=== PATIENT | female | born 1930 | race Caucasian/White ===

== ENCOUNTER 2017-07-03 13:26 | Inpatient (IN) ==
--- NOTE | 2017-07-03 18:25 | Internal Med History&Physical ---
Date of Encounter: 07/03/17 Time of Encounter: 17:00 Internal Medicine - H&P: HPI Chief complaint: Fall Admitted From: Home History of present illness: Patient is an 87-year-old female with past medical history significant for dementia, hyperlipidemia and mood disorder who presents to the ER on 07/03/17 status post fall. Patient has a history of dementia and family who is present at bedside, does not know much about patients past medical history as she recently moved from [place] approximately 2 months ago. Family does report however that they heard patient fall early this morning and when they went to the bathroom, they found patient face down on the floor. Patient was brought into the ER for further evaluation. In the ER, patient was found to be in atrial fibrillation with RVR. CT of the head showed no acute findings. Patient will be admitted to medical surgical floor for new onset of age of for ablation for RVR. Past Med Surg Social Fam HX - Past Medical History Medical history: cancer, dementia, hyperlipidemia Psychiatric history: no psych history - Past Surgical History Surgical History: non-contributory - Social History Smoking Status: Never smoker Alcohol use: none - Family History Son Living Status: Still Living Hx Family Cardiac Disorders: Yes Hx Family Respiratory Disorders: No Hx Family Cancer: Yes Hx Family GI Disorders: No Hx Family Genitourinary Disorders: No Hx Family Endocrine Disorder: No Hx Family Musculoskeletal Disorders: No Hx Family Neuromuscular Disorders: No Hx Family Neurologic Disorders: Yes Hx Family Medical Disorders: Yes Internal Medicine - H&P: Meds Citalopram [CeleXA] 20 mg PO DAILY 07/03/17 [History] Cranberry Fruit [Cranberry] 400 mg PO DAILY 07/03/17 [History] Donepezil [Aricept] 10 mg PO HS 07/03/17 [History] Lovastatin [Altoprev] 20 mg PO DAILY 07/03/17 [History] Mirabegron [Myrbetriq] 25 mg PO DAILY 07/03/17 [History] Nitrofurantoin (BID) [Macrobid] 100 mg PO BID 07/03/17 [History] 3 Allergy/AdvReac Type Severity Reaction Status Date / Time No Known Allergies Allergy Verified 07/03/17 12:05 ROS unobtainable: due to mental status All Systems PM: A 10-system review of systems was performed and is negative for pertinent findings except as documented above in the HPI. - Constitutional Vitals: Temp Pulse Resp BP Pulse Ox 98.1 F 125 18 134/89 93 07/03/17 15:06 07/03/17 15:06 07/03/17 15:06 07/03/17 15:06 07/03/17 15:06 General appearance: Present: A&O X 1 - Eye Eye exam: Present: normal appearance - ENT ENT exam: Present: mucous membranes moist - Respiratory Respiratory exam: Present: CTAB. Absent: accessory muscle use, rales, rhonchi, wheezes - Cardiovascular Cardiovascular exam: Present: RRR, +S1, +S2. Absent: diastolic murmur, gallop, rubs, systolic murmur - GI/Abdominal GI/Abdominal exam: Present: normal bowel sounds, soft, no peritoneal signs. Absent: distended, tenderness - Extremities Exam Extremities exam: Present: pedal edema - Neurological Exam Neurological exam: Present: altered - Psychiatric Psychiatric exam: Present: normal mood - Skin Skin exam: Present: normal color - Assessment and plan (1) New onset a-fib Current Visit: No Status: Acute Assessment and plan: Patient in the ER found to have new onset A. fib with RVR Will continue Cardizem drip for rate control and start patient on heparin drip for anticoagulation Cardiology consulted and appreciate recommendations. (2) Elevated troponin Current Visit: No Status: Acute Assessment and plan: Patient found to have elevated troponin of 0.34 Patient is asymptomatic and denies any chest pain; unclear if secondary to demand ischemia due to A. fib with RVR above Will trend troponins serially and monitor on telemetry Patient on heparin drip as above and cardiology consulted (3) Falls Current Visit: Yes Status: Acute Assessment and plan: Family reports that patient has had 2 falls since she has lived with them in the last 2 months Will consult physical therapy for evaluation of home safety Qualifiers: Encounter type: initial encounter Qualified Code(s): W19.XXXA - Unspecified fall, initial encounter (4) Dementia Current Visit: Yes Status: Acute Assessment and plan: Will continue home medications Qualifiers: Alzheimer's disease onset: unspecified onset Qualified Code(s): G30.9 - Alzheimer's disease, unspecified; F02.81 - Dementia in other diseases classified elsewhere with behavioral disturbance (5) DVT prophylaxis Current Visit: Yes Status: Acute Assessment and plan: Patient on heparin drip as above - Time Spent With Patient Total time spent is greater than 50% in coordination of care (as documented) at patient's floor/unit and/or counseling patient:
[2017-07-03] MEDS ORDERED: Naloxone 0.4 MG/ML INJ IVP PRN (18:35)
[2017-07-03] MEDS ORDERED: *HR* Heparin 5,000 UNIT/ML VIAL IVP ONE (18:38)
[2017-07-03] MEDS ORDERED: *HR* Heparin 5,000 UNIT/ML VIAL IVP PRN ×2 (18:38)
[2017-07-03 19:12] LABS: Hematocrit 35.5 % (35.3-44.9); Mean Corpuscular HGB Conc 33.8 g/dL (31.6-35.5); Mean Corpuscular Hemoglobin 31.9 pg (28.0-33.3); Mean Corpuscular Volume 94.4 fL (83.0-100.0); Mean Platelet Volume 9.3 fL (9.4-12.4); Platelet Count 203 K/mcL (140-400); Red Blood Count 3.76 M/mcL (3.82-4.97); Red Cell Distribution Width 14.6 % (11.5-14.5)
[2017-07-03 19:20] LABS: INR 1.2; Prothrombin Time 12.5 Seconds (9.4-12.1)
[2017-07-03 19:22] LABS: Activated Partial Thrombo Time 30.5 Seconds (26.0-36.0)
[2017-07-03] MEDS: Heparin 25,000 UNIT/500 ML D5W 25,000 UNIT/500 ML BAG IVC SCH (19:53)
[2017-07-04 02:38] LABS: BUN/Creatinine Ratio 29 (6-26); Blood Urea Nitrogen 21 mg/dL (8-23); Calcium 8.4 mg/dL (8.6-10.3); Carbon Dioxide 24 mEq/L (23-29); Chloride 110 mEq/L (98-107); Glucose 108 mg/dL (70-105); Osmolality,Calculated 294 (280-300); Potassium 3.5 mEq/L (3.5-5.1); Sodium 140 mEq/L (136-145); eGFR For African Americans > 60 (> 60); eGFR For Non-African Americans > 60 (> 60)
[2017-07-04 02:47] LABS: Basophils % 0.3 %; Eosinophils # 0.3 K/mcL (0.0-0.6); Eosinophils % 3.7 %; Hematocrit 32.5 % (35.3-44.9); Immature Granulocytes % 0.3 % (0-4); Lymphocytes # 2.1 K/mcL (0.6-4.6); Lymphocytes % 31.4 %; Mean Corpuscular HGB Conc 33.8 g/dL (31.6-35.5); Mean Corpuscular Hemoglobin 31.9 pg (28.0-33.3); Mean Corpuscular Volume 94.2 fL (83.0-100.0); Mean Platelet Volume 9.6 fL (9.4-12.4); Monocytes # 0.4 K/mcL (0.0-1.3); Monocytes % 5.5 %; Neutrophils # 3.9 K/mcL (1.6-8.9); Platelet Count 178 K/mcL (140-400); Red Blood Count 3.45 M/mcL (3.82-4.97); Red Cell Distribution Width 14.6 % (11.5-14.5); Segmented Neutrophils % 58.8 %
[2017-07-04 02:49] LABS: Activated Partial Thrombo Time 162.3 Seconds (26.0-36.0)
[2017-07-04 02:55] LABS: Heparin anti-factor XA UFH 0.64 IU/mL (0.30-0.70)
--- NOTE | 2017-07-04 09:32 | Internal Med Progress Note ---
Date of Encounter: 07/04/17 Time of Encounter: 09:30 - Assessment and plan (1) New onset a-fib Current Visit: No Status: Inactive Assessment and plan: Patient in the ER found to have new onset A. fib with RVR Will continue Cardizem drip for rate control and start patient on heparin drip for anticoagulation Cardiology consulted and appreciate recommendations. (2) Elevated troponin Current Visit: No Status: Inactive Assessment and plan: Patient found to have elevated troponin of 0.34. Troponins trended up to 1.32 Patient is asymptomatic and denies any chest pain; unclear if secondary to demand ischemia due to A. fib with RVR above Will trend troponins serially and monitor on telemetry Patient on heparin drip as above and cardiology consulted (3) Dementia Current Visit: Yes Status: Acute Assessment and plan: Will continue home medications Qualifiers: Alzheimer's disease onset: unspecified onset Qualified Code(s): G30.9 - Alzheimer's disease, unspecified; F02.81 - Dementia in other diseases classified elsewhere with behavioral disturbance (4) DVT prophylaxis Current Visit: Yes Status: Acute Assessment and plan: Patient on heparin drip as above (5) Falls Current Visit: Yes Status: Acute Assessment and plan: Family reports that patient has had 2 falls since she has lived with them in the last 2 months Will consult physical therapy for evaluation of home safety Qualifiers: Encounter type: initial encounter Qualified Code(s): W19.XXXA - Unspecified fall, initial encounter - Time Spent With Patient Total time spent is greater than 50% in coordination of care (as documented) at patient's floor/unit and/or counseling patient: - Subjective Interval history: No acute events overnight - Constitutional Vitals: Temp Pulse Resp BP Pulse Ox 98.3 F 67 18 135/72 95 07/04/17 08:06 07/04/17 08:06 07/04/17 08:06 07/04/17 08:06 07/04/17 08:06 General appearance: Present: A&O X 1 - Head Head exam: Present: atraumatic, normocephalic - Eye Eye exam: Present: PERRL, conjuntiva pink, sclera anicteric Pupils: Present: PERRL - Neck Neck exam general surgery: Present: supple, trachea midline. Absent: lymphadenopathy - Respiratory Respiratory exam: Present: CTAB. Absent: accessory muscle use, rales, rhonchi, wheezes - Cardiovascular Cardiovascular exam: Present: RRR, +S1, +S2. Absent: diastolic murmur, gallop, rubs, systolic murmur - GI/Abdominal GI/Abdominal exam: Present: normal bowel sounds, soft, no peritoneal signs. Absent: distended, tenderness - Extremities Exam Extremities exam: Present: warm, radial pulses palpable and symmetrical. Absent : calf tenderness, cyanotic, pedal edema - Neurological Exam Neurological exam: Present: CN II-XII intact, oriented X3, no focal deficits. Absent: pronater drift, facial droop, speech deficit - Skin Skin exam: Present: dry, intact Internal Medicine: Result - Labs CBC & Chem 7: 07/04/17 01:47 07/04/17 01:47 Labs: Short CBC 07/03/17 07/04/17 Range/Units 18:57 01:47 WBC 9.0 6.7 (4.3-11.1) K/mcL Hgb 12.0 11.0 L (11.5-15.4) g/dL Hct 35.5 32.5 L (35.3-44.9) % Plt Count 203 178 (140-400) K/mcL Neutrophils # 3.9 (1.6-8.9) K/mcL BMP 07/04/17 01:47 Sodium 140 Potassium 3.5 Chloride 110 H Carbon Dioxide 24 BUN 21 Creatinine 0.73 Glucose 108 H Calcium 8.4 L Cardiac Enzymes 07/03/17 07/04/17 07/04/17 Range/Units 18:57 01:47 06:30 Troponin I 1.32 H* 0.98 H* 0.89 H* (< 0.04) ng/mL - ABG Interpretation ABG results: PT/INR, D-dimer PT 12.5 Seconds (9.4-12.1) H 07/03/17 18:57 Consult Discharge Plan - Plan Referrals: NONE,PCP [Primary Care Provider] -
--- NOTE | 2017-07-04 10:14 | Cardiology Consult Note ---
Date of Encounter: 07/04/17 Time of Encounter: 10:10 Assessment and Plan (1) Atrial fibrillation with RVR Current Visit: Yes Status: Acute Presented in A-Fib RVR, presumably new onset. Cardizem gtt was started and pt has since converted to SR. Will start low dose PO BB. [id number] (Age, HTN, Female). Currently on heparin gtt. Would ideally recommend anticoagulation given high CVA risk. However, given her dementia and falls risk and presenting s/p fall, recommend ASA only. Pt aware of increased CVA risk. Check TTE to evaluate structure and function. K 3.5. Check Mag and TSH. If no significant findings on TTE anticipate sign off. (2) Elevated troponin Current Visit: Yes Status: Acute Peak troponin 1.32, now downtrended 0.98, 0.89. In setting of s/p fall and A- Fib RVR. Demand ischemia vs. NSTEMI. Pt denies chest pain, no ischemic EKG changes. Pt is full code. I discussed invasive procedures vs. medical management and she voiced that she would like to avoid invasive procedure such as LHC. Not a candidate for cardiac rehab. TTE to evaluate structure and function. Start ASA and BB. On home statin. Medical management. Would recommend primary team consider discussing code status with family. If no significant findings on TTE, anticipate sign off. Recommend heparin gtt 24 -48 hours. Discussion w patient/family: The assessment and plan as outlined above was discussed with the patient and/or family members who expressed understanding and agreement. All questions were answered. Thank you for involving us in the care of your patient. Please call with any questions. I will discuss all the above with Dr. Myers and make changes as necessary. History of Present Illness Consult date: 07/04/17 Requesting physician: Reed Marr Consult reason: A-Fib RVR, Elevated troponin Chief complaint: fall History of present illness: Ms. Ventura is a 87 year old female with past medical history of dementia, HLD and mood disorder who presents to the ER on 07/03/17 status post fall. Pt recently moved from [place] approximately 2 months ago. No family at bedside currently, but per H&P, family heard patient fall early yesterday morning and when they went to the bathroom, they found patient face down on the floor. Patient was brought into the ER for further evaluation. Unclear if pt lost consciousness. In the ER, patient was found to be in atrial fibrillation with RVR. CT of the head showed no acute findings. Pt was started on a Cardizem gtt and since converted to SR. She denies chest pain or dyspnea. Troponins 0.34, 1.32, 0.98, 0.89. Cardiology consulted for further recs. Past Med Surg Social Fam HX - Past Medical History Medical history: cancer, dementia, hyperlipidemia Psychiatric history: no psych history - Past Surgical History Surgical History: non-contributory - Social History Smoking Status: Never smoker Alcohol use: none - Family History Son Living Status: Still Living Hx Family Cardiac Disorders: Yes Hx Family Respiratory Disorders: No Hx Family Cancer: Yes Hx Family GI Disorders: No Hx Family Genitourinary Disorders: No Hx Family Endocrine Disorder: No Hx Family Musculoskeletal Disorders: No Hx Family Neuromuscular Disorders: No Hx Family Neurologic Disorders: Yes Hx Family Medical Disorders: Yes Medications and Allergies Citalopram [CeleXA] 20 mg PO DAILY 07/03/17 [History] Cranberry Fruit [Cranberry] 400 mg PO DAILY 07/03/17 [History] Donepezil [Aricept] 10 mg PO HS 07/03/17 [History] Lovastatin [Altoprev] 20 mg PO DAILY 07/03/17 [History] Mirabegron [Myrbetriq] 25 mg PO DAILY 07/03/17 [History] Nitrofurantoin (BID) [Macrobid] 100 mg PO BID 07/03/17 [History] 3 Allergy/AdvReac Type Severity Reaction Status Date / Time No Known Allergies Allergy Verified 07/03/17 12:05 ROS unobtainable: due to mental status All Systems Review: The remainder of the systems were reviewed and are negative Physical Examination Vital Signs, Last 4 Hours Temp Pulse Resp BP Pulse Ox 07/04/17 08:06 98.3 F 67 18 135/72 95 Vital Signs Temp Pulse Resp BP Pulse Ox 07/04/17 08:06 98.3 F 67 18 135/72 95 07/04/17 04:00 97.7 F 55 17 149/67 91 07/03/17 23:46 97.8 F 62 17 118/85 91 07/03/17 19:45 94 07/03/17 19:12 97.8 F 64 18 103/75 94 07/03/17 15:06 98.1 F 125 18 134/89 93 Intake and Output 07/03/17 07/04/17 07/04/17 23:59 07:59 15:59 Intake Total 375 / 375 240 / 240 Output Total 150 / 150 250 / 250 Balance 225 / 225 -10 / -10 Intake: IV Fluids 15 / 15 240 / 240 Cardizem 125 MG In 0.9 % Sodium 15 / 15 Chloride 100 ML @ 5 MG/HR 5 mls/hr IVC .Q24H [facility] Rx#: [id number] Heparin 25,000 UNIT/500 ML D5W 240 / 240 25,000 unit In 500 ml @ 12 UNIT /KG/HR 17.472 mls/hr IVC .Q24H [facility] Rx#:[id number] Oral 360 / 360 0 / 0 Output: Urine 150 / 150 250 / 250 Other: Stool Size Small Stool Consistency formed Stool Characteristics Normal for Patient Stool Color Brown Weight 73.4 kg Patient Weight 07/04/17 23:59 Weight 73.4 kg General: Conversant, No Apparent Distress HEENT: Atraumatic, Normocephaly, Mucus Membranes Moist Neck: No JVD, Normal carotid pulses Cardiac: Reg Rate and Rhythm, Normal S1 and S2, No Murmur Lungs: Normal Breath Sounds, No Wheeze, Rales, Rhonchi Neuro: Other (confused) Abdomen: Soft, Non-Tender Skin: No rashes noted on visualized skin Musculoskeletal: No Chest Wall Tenderness Extremities: No Clubbing, No Cyanosis, No Edema, Normal Pulses Results 07/04/17 01:47 07/04/17 01:47 Lab Results 07/03/17 07/03/17 07/03/17 18:57 18:57 18:57 WBC 9.0 Hgb 12.0 Hct 35.5 Plt Count 203 INR 1.2 APTT 30.5 Sodium Potassium Chloride Carbon Dioxide BUN Creatinine Glucose Calcium Troponin I 1.32 H* 07/04/17 07/04/17 07/04/17 01:47 01:47 01:47 WBC 6.7 Hgb 11.0 L Hct 32.5 L Plt Count 178 INR APTT Sodium 140 Potassium 3.5 Chloride 110 H Carbon Dioxide 24 BUN 21 Creatinine 0.73 Glucose 108 H Calcium 8.4 L Troponin I 0.98 H* 07/04/17 07/04/17 01:47 06:30 WBC Hgb Hct Plt Count INR APTT 162.3 H* D Sodium Potassium Chloride Carbon Dioxide BUN Creatinine Glucose Calcium Troponin I 0.89 H* Short CBC 07/04/17 07/03/17 Range/Units 01:47 18:57 WBC 6.7 9.0 (4.3-11.1) K/mcL Hgb 11.0 L 12.0 (11.5-15.4) g/dL Hct 32.5 L 35.5 (35.3-44.9) % Plt Count 178 203 (140-400) K/mcL Neutrophils # 3.9 (1.6-8.9) K/mcL BMP 07/04/17 Range/Units 01:47 Sodium 140 (136-145) mEq/L Potassium 3.5 (3.5-5.1) mEq/L Chloride 110 H (98-107) mEq/L Carbon Dioxide 24 (23-29) mEq/L BUN 21 (8-23) mg/dL Creatinine 0.73 (0.60-1.20) mg/dL Glucose 108 H (70-105) mg/dL Calcium 8.4 L (8.6-10.3) mg/dL Cardiac Enzymes 07/04/17 07/04/17 07/03/17 Range/Units 06:30 01:47 18:57 Troponin I 0.89 H* 0.98 H* 1.32 H* (< 0.04) ng/mL Active Medications Heparin Sodium (Porcine) (Heparin) 4,000 unit IVP Q6HR PRN PRN Reason: SEE COMMENTS Stop: 01/02/18 18:39 Heparin Sodium (Porcine) (Heparin) 2,000 unit IVP Q6H PRN PRN Reason: SEE COMMENTS Stop: 01/02/18 18:39 Heparin Sodium/Dextrose (Heparin 25,000 Unit/500 Ml D5w) 25,000 unit in 500 mls @ 17.472 mls/hr IVC .Q24H [facility]; 12 UNIT/KG/HR PRN Reason: Protocol Stop: 01/02/18 18:46 Last Titration: 07/04/17 03:54 Dose: 9 unit/kg/hr, 13.104 mls/hr Diltiazem HCl 125 mg/ Sodium (Chloride) 125 mls @ 5 mls/hr IVC .Q24H [facility]; 5 MG/ HR PRN Reason: Protocol Stop: 01/02/18 18:46 Last Titration: 07/03/17 22:45 Dose: 0 mg/hr, 0 mls/hr Naloxone HCl (Narcan) 0.4 mg IVP Q2MIN PRN PRN Reason: SEE COMMENTS Stop: 01/02/18 18:36 - EKG Interpretation EKG results cardiology: personally reviewed (A-Fib RVR rate 155. Repeat SR, rate 59.), other (12 hr tele AVG HR 63, PAF, longest pause 4.3 seconds.) Consult Discharge Plan - Plan Referrals: NONE,PCP [Primary Care Provider] -
[2017-07-04] MEDS: Aspirin 81 MG TAB.CHEW PO SCH (16:33)
[2017-07-05] MEDS: Heparin 25,000 UNIT/500 ML D5W 25,000 UNIT/500 ML BAG IVC SCH (04:04)
[2017-07-05 04:55] LABS: Basophils % 0.4 %; Eosinophils # 0.4 K/mcL (0.0-0.6); Eosinophils % 8.9 %; Hematocrit 34.9 % (35.3-44.9); Hemoglobin 11.2 g/dL (11.5-15.4); Immature Granulocytes % 0.2 % (0-4); Lymphocytes % 41.9 %; Mean Corpuscular HGB Conc 32.1 g/dL (31.6-35.5); Mean Corpuscular Hemoglobin 30.4 pg (28.0-33.3); Mean Corpuscular Volume 94.6 fL (83.0-100.0); Mean Platelet Volume 9.4 fL (9.4-12.4); Monocytes # 0.3 K/mcL (0.0-1.3); Neutrophils # 2.1 K/mcL (1.6-8.9); Platelet Count 206 K/mcL (140-400); Red Blood Count 3.69 M/mcL (3.82-4.97); Red Cell Distribution Width 14.6 % (11.5-14.5); Segmented Neutrophils % 42.6 %
[2017-07-05 05:22] LABS: BUN/Creatinine Ratio 27 (6-26); Blood Urea Nitrogen 16 mg/dL (8-23); Calcium 8.5 mg/dL (8.6-10.3); Carbon Dioxide 27 mEq/L (23-29); Chloride 107 mEq/L (98-107); Glucose 106 mg/dL (70-105); Magnesium 1.8 mg/dL (1.6-2.6); Osmolality,Calculated 292 (280-300); Phosphorous 3.2 mg/dL (2.7-4.5); Potassium 3.3 mEq/L (3.5-5.1); Sodium 140 mEq/L (136-145); eGFR For African Americans > 60 (> 60); eGFR For Non-African Americans > 60 (> 60)
--- NOTE | 2017-07-05 06:17 | Event Note ---
Date of Encounter: 07/05/17 Time of Encounter: 06:16 - Cardiology Event Note Echo EF 65-70%. Remains in SR. Cardiology signing off. Reconsult PRN. TSH 6.534--management per primary team. K 3.3--will replace.
[2017-07-05] MEDS ORDERED: Potassium Chloride Elixir 20 MEQ/15 ML UDC PO ONE (06:18)
--- NOTE | 2017-07-05 08:38 | Internal Med Progress Note ---
Date of Encounter: 07/05/17 Time of Encounter: 08:30 - Assessment and plan (1) New onset a-fib Current Visit: No Status: Inactive Assessment and plan: Patient in the ER found to have new onset A. fib with RVR Was initially ion cardizem drip which hads been weaned off and patient is now on lopressor. cardiology recommend aspirin only for anticoagulation due to fall risk. (2) Elevated troponin Current Visit: No Status: Inactive Assessment and plan: Patient found to have elevated troponin of 0.34. Troponins trended up to 1.32. 2D echo showed no wall motion abnormalities. Cardiology recommend no acute intervention (3) Dementia Current Visit: Yes Status: Acute Assessment and plan: Will continue home medications Qualifiers: Alzheimer's disease onset: unspecified onset Qualified Code(s): G30.9 - Alzheimer's disease, unspecified; F02.81 - Dementia in other diseases classified elsewhere with behavioral disturbance (4) DVT prophylaxis Current Visit: Yes Status: Acute Assessment and plan: On sc lovenox (5) Falls Current Visit: Yes Status: Acute Assessment and plan: Follow PT and OT recs Qualifiers: Encounter type: initial encounter Qualified Code(s): W19.XXXA - Unspecified fall, initial encounter - Time Spent With Patient Total time spent is greater than 50% in coordination of care (as documented) at patient's floor/unit and/or counseling patient: - Subjective Interval history: No acute events overnight - Constitutional Vitals: Temp Pulse Resp BP Pulse Ox 98.3 F 62 18 158/82 97 07/05/17 07:00 07/05/17 07:00 07/05/17 07:00 07/05/17 07:00 07/05/17 07:00 General appearance: Present: A&O X 1 - Head Head exam: Present: atraumatic, normocephalic - Eye Eye exam: Present: PERRL, conjuntiva pink, sclera anicteric Pupils: Present: PERRL - Neck Neck exam general surgery: Present: supple, trachea midline. Absent: lymphadenopathy - Respiratory Respiratory exam: Present: CTAB. Absent: accessory muscle use, rales, rhonchi, wheezes - Cardiovascular Cardiovascular exam: Present: RRR, +S1, +S2. Absent: diastolic murmur, gallop, rubs, systolic murmur - GI/Abdominal GI/Abdominal exam: Present: normal bowel sounds, soft, no peritoneal signs. Absent: distended, tenderness - Extremities Exam Extremities exam: Present: warm, radial pulses palpable and symmetrical. Absent : calf tenderness, cyanotic, pedal edema - Neurological Exam Neurological exam: Present: CN II-XII intact, oriented X3, no focal deficits. Absent: pronater drift, facial droop, speech deficit - Skin Skin exam: Present: dry, intact Internal Medicine: Result - Labs CBC & Chem 7: 07/05/17 04:22 07/05/17 04:22 Labs: Short CBC 07/05/17 Range/Units 04:22 WBC 4.9 (4.3-11.1) K/mcL Hgb 11.2 L (11.5-15.4) g/dL Hct 34.9 L (35.3-44.9) % Plt Count 206 (140-400) K/mcL Neutrophils # 2.1 (1.6-8.9) K/mcL BMP 07/05/17 04:22 Sodium 140 Potassium 3.3 L Chloride 107 Carbon Dioxide 27 BUN 16 Creatinine 0.59 L Glucose 106 H Calcium 8.5 L - ABG Interpretation ABG results: PT/INR, D-dimer PT 12.5 Seconds (9.4-12.1) H 07/03/17 18:57 - Impressions Impressions Echocardiogram 07/04/17 10:23 Impressions: LVEF 65-70%. Diastolic dysfunction, NOS Mild pulmonary hypertension. No severe valvular dysfunction. Left Ventricular Wall Motion: Rest Echo Findings The apex, apical inferior, mid inferior, basal inferior, apical anterior, mid anterior, basal anterior, apical septal, mid inferior septal, basal inferior septal, apical lateral, mid anterior lateral, basal anterior lateral, mid anterior septal, mid inferior lateral, basal anterior septal and basal inferior lateral nixon were hyperkinetic. Findings: Study Quality * Technically adequate exam. Right Ventricle * Normal right ventricular structure and function. Right Atrium * Normal right atrial size. Interatrial Septum * No evidence of PFO by color Doppler. Aorta * Normally sized aortic root. Pericardium * The pericardium appears normal. * There is a trivial pericardial effusion present. Left Ventricle * Basal sigmoid septum. * LVEF 65-70%. * Diastolic dysfunction, NOS Mitral Valve * No mitral stenosis. * Mild mitral annular calcification * Mild mitral regurgitation. Aortic Valve * Normal aortic valve structure. * No aortic stenosis. * Mild-moderate aortic regurgitation. Tricuspid Valve * No tricuspid stenosis. * Mild tricuspid regurgitation. * Estimated RVSP is 39 mmHg. * Estimated RA pressure is 0-5 mmHg. * Mild pulmonary hypertension. Pulmonic Valve * No pulmonic stenosis. * Mild pulmonic regurgitation. ECG Findings * Normal sinus rhythm. IVC * Normal IVC dimensions and inspiratory collapse. Left Atrium * Mildly dilated left atrium. Consult Discharge Plan - Plan Referrals: NONE,PCP [Primary Care Provider] -
[2017-07-05] MEDS: Aspirin 81 MG TAB.CHEW PO SCH (09:23)
[2017-07-05] MEDS: Ibuprofen 800 MG TABLET PO PRN (16:43)
--- NOTE | 2017-07-06 02:09 | Event Note ---
Date of Encounter: 07/06/17 Time of Encounter: 01:50 Patient was found syncope in the bathroom today. Rapid response was called. Patient wake-up after around 10 second. When I saw patient at bedside, she get back to her baseline. Syncope was witnessed by our nurse, no head injury, no shaking, no urinary/fecal incontinence. Patient denies chest pain or shortness of breath. Patient's vital sign and blood sugar level was checked, unremarkable. Patient was admitted as A. fib RVR and syncope episode before admission. Her heart rate was converted to normal sinus rhythm but now change back to A. fib RVR again. On exam, patient is awake alert, oriented 3. Lungs are clear, heart rate is irregular, abdominal is soft nontender, patient move 4 limbs without limitation. No focal neuro deficit identified. plan: 1. CBC, BMP, magnesium stat. 2. Restarted Cardizem drip for A. fib RVR, closely monitor vitals per protocol 3. Fall precaution. 4. Patient had CT head and echocardiogram already, will check duplex carotid in a.m.
[2017-07-06 02:49] LABS: Basophils % 0.2 %; Eosinophils # 0.3 K/mcL (0.0-0.6); Eosinophils % 3.4 %; Hematocrit 40.9 % (35.3-44.9); Immature Granulocytes % 0.2 % (0-4); Lymphocytes # 1.2 K/mcL (0.6-4.6); Lymphocytes % 14.1 %; Mean Corpuscular HGB Conc 33.5 g/dL (31.6-35.5); Mean Corpuscular Hemoglobin 31.6 pg (28.0-33.3); Mean Corpuscular Volume 94.2 fL (83.0-100.0); Monocytes # 0.1 K/mcL (0.0-1.3); Monocytes % 1.5 %; Neutrophils # 6.7 K/mcL (1.6-8.9); Platelet Count 265 K/mcL (140-400); Red Blood Count 4.34 M/mcL (3.82-4.97); Red Cell Distribution Width 14.2 % (11.5-14.5); Segmented Neutrophils % 80.6 %
[2017-07-06 02:50] LABS: Hemoglobin 13.7 g/dL (11.5-15.4)
[2017-07-06 02:57] LABS: BUN/Creatinine Ratio 15 (6-26); Blood Urea Nitrogen 11 mg/dL (8-23); Calcium 8.9 mg/dL (8.6-10.3); Carbon Dioxide 27 mEq/L (23-29); Chloride 104 mEq/L (98-107); Glucose 109 mg/dL (70-105); Magnesium 1.7 mg/dL (1.6-2.6); Osmolality,Calculated 288 (280-300); Potassium 3.1 mEq/L (3.5-5.1); Sodium 139 mEq/L (136-145); eGFR For African Americans > 60 (> 60); eGFR For Non-African Americans > 60 (> 60)
[2017-07-06] MEDS ORDERED: 0.9 % Sodium Chloride 500 ML IVC ONE (03:15)
[2017-07-06] MEDS ORDERED: *HR* Enoxaparin 40 MG/0.4 ML SYRINGE SQ SCH (06:00)
[2017-07-06] MEDS ORDERED: MYRBETRIQ 50 MG PO SCH (09:00)
[2017-07-06] MEDS: Aspirin 81 MG TAB.CHEW PO SCH (09:07)
[2017-07-06] MEDS: Ibuprofen 800 MG TABLET PO PRN (09:10)
--- NOTE | 2017-07-06 09:21 | Internal Med Progress Note ---
Date of Encounter: 07/06/17 Time of Encounter: 09:20 - Assessment and plan (1) New onset a-fib Current Visit: No Status: Inactive Assessment and plan: Patient in the ER found to have new onset A. fib with RVR Was initially ion cardizem drip which had been weaned off and patient is now on lopressor. cardiology recommend aspirin only for anticoagulation due to fall risk. 07/06. pt went back into afib with rv r overnight. Restarted on cardizem drp. Cardiology reconsulted and appreciate recs (2) Elevated troponin Current Visit: No Status: Inactive Assessment and plan: Patient found to have elevated troponin of 0.34. Troponins trended up to 1.32. 2D echo showed no wall motion abnormalities. Cardiology recommend no acute intervention (3) Dementia Current Visit: Yes Status: Acute Assessment and plan: Will continue home medications Qualifiers: Alzheimer's disease onset: unspecified onset Qualified Code(s): G30.9 - Alzheimer's disease, unspecified; F02.80 - Dementia in other diseases classified elsewhere without behavioral disturbance (4) DVT prophylaxis Current Visit: Yes Status: Acute Assessment and plan: On sc lovenox (5) Falls Current Visit: Yes Status: Acute Assessment and plan: Follow PT and OT recs Qualifiers: Encounter type: initial encounter Qualified Code(s): W19.XXXA - Unspecified fall, initial encounter - Time Spent With Patient Total time spent is greater than 50% in coordination of care (as documented) at patient's floor/unit and/or counseling patient: - Subjective Interval history: had an episode of syncope and went back into afib with rvr overnight - Constitutional Vitals: Temp Pulse Resp BP Pulse Ox 98.7 F 88 15 106/74 93 07/06/17 06:45 07/06/17 06:45 07/06/17 06:45 07/06/17 06:45 07/06/17 06:45 General appearance: Present: A&O X 1 - Head Head exam: Present: atraumatic, normocephalic - Eye Eye exam: Present: PERRL, conjuntiva pink, sclera anicteric Pupils: Present: PERRL - Neck Neck exam general surgery: Present: supple, trachea midline. Absent: lymphadenopathy - Respiratory Respiratory exam: Present: CTAB. Absent: accessory muscle use, rales, rhonchi, wheezes - Cardiovascular Cardiovascular exam: Present: RRR, +S1, +S2. Absent: diastolic murmur, gallop, rubs, systolic murmur Additional comments: irregularly irregular hear rhythm - GI/Abdominal GI/Abdominal exam: Present: normal bowel sounds, soft, no peritoneal signs. Absent: distended, tenderness - Extremities Exam Extremities exam: Present: warm, radial pulses palpable and symmetrical. Absent : calf tenderness, cyanotic, pedal edema - Neurological Exam Neurological exam: Present: CN II-XII intact, oriented X3, no focal deficits. Absent: pronater drift, facial droop, speech deficit - Skin Skin exam: Present: dry, intact Internal Medicine: Result - Labs CBC & Chem 7: 07/06/17 02:23 07/06/17 02:23 Labs: Short CBC 07/06/17 Range/Units 02:23 WBC 8.3 D (4.3-11.1) K/mcL Hgb 13.7 D (11.5-15.4) g/dL Hct 40.9 (35.3-44.9) % Plt Count 265 (140-400) K/mcL Neutrophils # 6.7 (1.6-8.9) K/mcL BMP 07/06/17 02:23 Sodium 139 Potassium 3.1 L Chloride 104 Carbon Dioxide 27 BUN 11 Creatinine 0.73 Glucose 109 H Calcium 8.9 - ABG Interpretation ABG results: PT/INR, D-dimer PT 12.5 Seconds (9.4-12.1) H 07/03/17 18:57 Consult Discharge Plan - Plan Referrals: NONE,PCP [Primary Care Provider] -
--- NOTE | 2017-07-06 13:13 | Electrocardiograph Report ---
[place] [id number] Test Date: 2017-07-03 Pat Name: Asher Ventura Department: [facility] F Credit Operations Specialist: CAROLYN : 1930 Requested By: Chetna Rai Order Number: [id number] Reading MD: Moises Myers Measurements Intervals [place] Rate: 59 P: 52 NH: 99 QRS: 0 QRSD: 92 T: 4 QT: 442 QTc: 441 Interpretive Statements SINUS BRADYCARDIA WITH SHORT NH INTERVAL BASELINE ARTIFACT Electronically Signed On 07-06-2017 9:10:34 EDT by Moises Myers
--- NOTE | 2017-07-06 13:24 | Event Note ---
Date of Encounter: 07/06/17 Time of Encounter: 13:23 - Cardiology Event Note Cardiology reconsulted for another PAF episode, Cardizem gtt started, now back in SR. Discussed with Dr. Fermin. Continue low dose BB. No other recommendations. Now sinus rhythm. ASA only given dementia and falls risk. Pt aware of increased CVA risk. Cardiology signing off. Reconsult PRN.
--- NOTE | 2017-07-06 13:51 | Discharge Summary ---
- NOTES TO OUTPATIENT PROVIDER Notes to Outpatient Provider: Follow up with cardiology Orders not resulted at time of discharge: Pending orders 07/06/17 02:11 EV carotid duplex imaging BI Routine 07/07/17 04:00 Basic Metabolic Panel AM 0400 CBC [Complete Blood Count] [HEME] AM 0400 07/08/17 04:00 Basic Metabolic Panel AM 0400 CBC [Complete Blood Count] [HEME] AM 0400 07/09/17 04:00 Basic Metabolic Panel AM 0400 CBC [Complete Blood Count] [HEME] AM 0400 07/10/17 04:00 Basic Metabolic Panel AM 0400 CBC [Complete Blood Count] [HEME] AM 0400 Date of Encounter: 07/06/17 Time of Encounter: 14:00 - Discharge Diagnosis (1) New onset a-fib Priority: Primary Status: Inactive Assessment and Plan: 87 year old female came to the ER s/p fall. Patient in found to have new onset A. fib with RVR Was started on cardizem drip which was weaned off and patient is now on lopressor. cardiology recommend aspirin only for anticoagulation due to fall risk. 07/06. pt went back into afib with rv r overnight. Restarted on cardizem drip and gradually transitioned back to lopressor. Cardiology recommended no further modifications to medication regimen. She was discharged home with home health aide. family declined physical therapy / possible SNF placement as they don't think shell do well in rehab (2) Elevated troponin Priority: Primary Status: Inactive Assessment and Plan: Patient found to have elevated troponin of 0.34. Troponins trended up to 1.32. 2D echo showed no wall motion abnormalities. Cardiology recommend no acute intervention (3) Dementia Priority: Secondary Status: Acute Assessment and Plan: Will continue home medications Qualifiers: Alzheimer's disease onset: unspecified onset Qualified Code(s): G30.9 - Alzheimer's disease, unspecified; F02.80 - Dementia in other diseases classified elsewhere without behavioral disturbance (4) DVT prophylaxis Priority: Secondary Status: Acute Assessment and Plan: On sc lovenox (5) Falls Priority: Secondary Status: Acute Assessment and Plan: Follow PT and OT recs Qualifiers: Encounter type: initial encounter Qualified Code(s): W19.XXXA - Unspecified fall, initial encounter Hospital course: Ms. Ventura is a 87 year old female - Time Spent with Patient Total time spent providing and/or coordinating discharge services: - Discharge Medications Prescriptions: Aspirin 81 mg PO DAILY #30 tab.chew Metoprolol [Lopressor] 25 mg PO BID #60 tablet Home Medications: Citalopram [CeleXA] 20 mg PO DAILY 07/03/17 [History] Cranberry Fruit [Cranberry] 400 mg PO DAILY 07/03/17 [History] Lovastatin [Altoprev] 20 mg PO DAILY 07/03/17 [History] Nitrofurantoin (BID) [Macrobid] 100 mg PO HS 07/03/17 [History] Memantine HCl 10 mg PO HS 07/04/17 [History] Mirabegron [Myrbetriq] 50 mg PO DAILY 07/04/17 [History] Aspirin 81 mg PO DAILY #30 tab.chew 07/06/17 [Rx] Metoprolol [Lopressor] 25 mg PO BID #60 tablet 07/06/17 [Rx] Allergies/Adverse Reactions: 3 Allergy/AdvReac Type Severity Reaction Status Date / Time No Known Allergies Allergy Verified 07/04/17 13:14 Date of admission: 07/03/17 18:35 Primary care physician: PCP NONE Consults: 07/03/17 15:31 Consult to Brine Purifier [CONS] Routine Reason for SW Consult: POSSIBLE NEED FOR HOME HEALTH OR ECF 07/03/17 18:37 Consult to Physical Therapy [CONS] Routine Comment: Evaluate, develop and implement POC Reason for Consult: Falls Does patient have active BEDREST order?: No Is patient medically & hemodynamically stable?: Yes Patient assessed for mobility or mobilized this visit?: No 07/03/17 18:40 Consult to Cardiology [CONS] Routine Comment: Consulting Provider: Cardiology Jessica Reason for Consult: A. fib with RVR and elevated troponins Time Notified: 18:00 Call Completed: Yes - Constitutional Vitals: Temp Pulse Resp BP Pulse Ox 98.0 F 78 15 107/52 97 07/06/17 10:14 07/06/17 10:14 07/06/17 10:14 07/06/17 10:14 07/06/17 10:14 General appearance: Present: A&O X 1 - Head Head exam: Present: atraumatic, normocephalic - Eye Eye exam: Present: PERRL, conjuntiva pink, sclera anicteric Pupils: Present: PERRL - Neck Neck exam general surgery: Present: supple, trachea midline. Absent: lymphadenopathy - Respiratory Respiratory exam: Present: CTAB. Absent: accessory muscle use, rales, rhonchi, wheezes - Cardiovascular Cardiovascular exam: Present: RRR, +S1, +S2. Absent: diastolic murmur, gallop, rubs, systolic murmur Additional comments: irregularly irregular - GI/Abdominal GI/Abdominal exam: Present: normal bowel sounds, soft, no peritoneal signs. Absent: distended, tenderness - Extremities Exam Extremities exam: Present: warm, radial pulses palpable and symmetrical. Absent : calf tenderness, cyanotic, pedal edema - Neurological Exam Neurological exam: Present: CN II-XII intact, oriented X3, no focal deficits. Absent: pronater drift, facial droop, speech deficit - Skin Skin exam: Present: dry, intact - Patient Status Disposition: Home Health Service Condition: Good - Discharge Instructions Follow Up With: NONE,PCP [Primary Care Provider] -
--- NOTE | 2017-07-06 13:52 | Physician Discharge Referral ---
Home Health/Hosp Referral Info Transfer to: Home Health - Diagnosis (1) New onset a-fib Priority: Primary Status: Inactive (2) Elevated troponin Status: Inactive (3) Dementia Priority: Primary Status: Acute (4) DVT prophylaxis Status: Acute (5) Falls Status: Acute - Respiratory Orders Smoking Cessation: Smoking cessation has been advised. For more information, call the [place] Tobacco Quit Line at 5-826-GPAT-NOW. - Diet/Nutrition Diet/Nutrition Orders: Cardiac - Services Needed Following services are medically necessary services: Nursing, Home Health Aide, Physical Therapy - Transfer Medications Prescriptions: Aspirin 81 mg PO DAILY #30 tab.chew Metoprolol [Lopressor] 25 mg PO BID #60 tablet Home Medications: Citalopram [CeleXA] 20 mg PO DAILY 07/03/17 [History] Cranberry Fruit [Cranberry] 400 mg PO DAILY 07/03/17 [History] Lovastatin [Altoprev] 20 mg PO DAILY 07/03/17 [History] Nitrofurantoin (BID) [Macrobid] 100 mg PO HS 07/03/17 [History] Memantine HCl 10 mg PO HS 07/04/17 [History] Mirabegron [Myrbetriq] 50 mg PO DAILY 07/04/17 [History] Aspirin 81 mg PO DAILY #30 tab.chew 07/06/17 [Rx] Metoprolol [Lopressor] 25 mg PO BID #60 tablet 07/06/17 [Rx] Allergies/Adverse Reactions: 3 Allergy/AdvReac Type Severity Reaction Status Date / Time No Known Allergies Allergy Verified 07/04/17 13:14 Certification: Further, I certify that my clinical findings support that this patient is homebound (i.e. absences from home require considerable and taxing effort and are for medical reasons or mosque services or infrequently or short duration when for other reasons) because: Homebound Reason: Patient requires assistance of a person or device to safely leave home, Altered mental status requiring supervision when leaving home Attestation: My signature below is to certify that this patient is under my care and that I, or nurse practitioner, or a physician's therapeutic assistant working with me, has a face-to -face encounter with this patient.
[2017-07-06 14:21] VITALS: BP 119/56
== END 2017-07-06 17:27 | disposition home health service (06) | DRG 309 ==
LOC: 2NENU
PROVIDERS: ADMIT Hospitalist; ATTEND Hospitalist